=== PATIENT | female | born 1955 | race African-American/Black ===

== ENCOUNTER 2017-10-29 14:11 | Observation (INO) | payer OTHER ==
[2017-10-29 14:24] VITALS: BMI 23.3
--- NOTE | 2017-10-29 15:40 | PDOC ---
Attending Attestation - Resident Resident Name: Eleazar Rodriguez - ED Attending Attestation I have performed the following: I have examined & evaluated the patient, The case was reviewed & discussed with the resident, I agree w/resident's findings & plan, Exceptions are as noted - HPI HPI: 10/29/17 16:57 62 year old female with past medical history of migraines, cervical radiculopathy, chronic lower back presents with approximately 3 days of chest pain. The patient reports a midsternal reproducible chest pain without SOB. Denies shortness of breath on exertion. States that palpation of mid chest worses with pain and with lying down. Initially started with intermittent chest pain and is now constant. Denies trauma or injuries to the area. The patient never had a prior stress test or echo. Pt is concerned as pt has strong family history of [place] including sister who had [place] at 47. - Physicial Exam PE: 10/29/17 17:04 GENERAL: Awake, alert, and fully oriented, in no acute distress HEAD: No signs of trauma EYES: PERRLA, EOMI, sclera anicteric, conjunctiva clear ENT: Auricles normal inspection, hearing grossly normal, nares patent, Moist mucosa NECK: Normal ROM, supple LUNGS: Breath sounds equal, clear to auscultation bilaterally. No wheezes, and no crackles HEART: Regular rate and rhythm, normal S1 and S2, no murmurs, rubs or gallops. + reproducible chest pain ABDOMEN: Soft, nontender, No guarding, no rebound. No masses EXTREMITIES: Normal range of motion, no edema. No clubbing or cyanosis. No cords, erythema, or tenderness NEUROLOGICAL: Cranial nerves II through XII grossly intact. Normal speech, normal gait SKIN: Warm, Dry, normal turgor, no rashes or lesions noted. - Medical Decision Making 10/29/17 17:06 Vital Signs Temp Pulse Resp BP Pulse Ox 99.6 F 96 H 18 122/65 96 10/29/17 14:22 10/29/17 14:22 10/29/17 14:22 10/29/17 14:22 10/29/17 14:22 62 year old female presents with atypical chest pain. Though the patient certainly has risk with family history and [place], the history and physical seems atypical Will need to rule out [place]. ECG is normal. Will trial NSAIDs. (pt as been taking aspirin at home). 10/29/17 18:06 Pt chest pain improved with nitro. Will admit the patient. Heart Score/ECG Review - History History: Slightly suspicious - Electrocardiogram EKG: Normal - Age Age: 45-65 - Risk Factors Risk Factors Heart Score: Yes Positive family hx of cardiac disease Based on the list above the patient has:: 1-2 risk factors - Troponin Troponin: </= normal limit - Score Heart Score - Total: 2 #1 ECG reviewed & interpreted by me at: 14:25 10/29/17 15:39 NSR 82, no sdt/zaire, T wave flat aVF, QTC 390 msec.
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
[2017-10-29] MEDS ORDERED: ASPIRIN 81 MG CHEWABLE TABLETS PO ONE (15:53)
[2017-10-29] MEDS ORDERED: NITROGLYCERIN SUBLINGUAL 1/150 0.4 MG TAB SL ONE (15:53)
[2017-10-29 16:02] LABS: BASO % 0.4 % (0-2.0); EOS % 0.7 % (0-4.5); HEMATOCRIT 40.4 % (32.4-45.2); HEMOGLOBIN 13.5 GM/dL (10.7-15.3); LYMPH % 10.9 % (8-40); MCH 28.4 pg (25.7-33.7); MCHC 33.5 g/dl (32.0-36.0); MEAN CELL VOLUME 84.8 fl (80-96); MEAN PLT VOLUME 8.9 fl (7.5-11.1); MONO % 7.2 % (3.8-10.2); NEUT % 80.8 % (42.8-82.8); PLATELET COUNT 270 K/MM3 (134-434); RBC 4.77 M/mm3 (3.60-5.2); RDW 13.6 % (11.6-15.6); WHITE BLOOD COUNT 13.1 K/mm3 (4.0-10.0)
[2017-10-29] MEDS ORDERED: ASPIRIN 81 MG CHEWABLE TABLETS ONE (16:02)
[2017-10-29] MEDS ORDERED: NITROGLYCERIN SUBLINGUAL 1/150 0.4 MG TAB ONE (16:03)
[2017-10-29 16:25] LABS: ALBUMIN 4.3 g/dl (3.4-5.0); ANION GAP 7 (8-16); BLOOD UREA NITROGEN 5 mg/dL (7-18); CALCIUM 8.8 mg/dL (8.5-10.1); CHLORIDE 105 mmol/L (98-107); CO2 30 mmol/L (21-32); CREATININE 0.9 mg/dL (0.55-1.02); GLUCOSE,RANDOM 76 mg/dL (74-106); POTASSIUM 3.5 mmol/L (3.5-5.1); SGOT/AST 19 U/L (15-37); SGPT/ALT 27 U/L (12-78); SODIUM 142 mmol/L (136-145)
[2017-10-29 16:29] LABS: ALK PHOS 74 U/L (45-117); BILIRUBIN,TOTAL 0.4 mg/dL (0.2-1.0); TOT PROT 7.8 g/dl (6.4-8.2)
[2017-10-29 16:35] LABS: INR 1.02 (0.83-1.09); PROTHROMBIN TIME (PATIENT) 11.5 SEC (9.7-13.0)
[2017-10-29] MEDS ORDERED: KETOROLAC TROMETHAMINE 30 MG/1 ML VIAL ONE (16:58)
[2017-10-29] MEDS ORDERED: KETOROLAC TROMETHAMINE 30 MG/1 ML VIAL IVPUSH ONE (16:58)
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
[2017-10-29] MEDS ORDERED: ACETAMINOPHEN 325 MG TABLET (FP) PO ONE (23:00)
[2017-10-29] MEDS ORDERED: ACETAMINOPHEN 325 MG TABLET (FP) ONE (23:21)
[2017-10-30 07:45] LABS: BASO % 0.2 % (0-2.0); EOS % 0.9 % (0-4.5); HEMATOCRIT 35.7 % (32.4-45.2); HEMOGLOBIN 11.9 GM/dL (10.7-15.3); LYMPH % 17.7 % (8-40); MCH 28.3 pg (25.7-33.7); MCHC 33.3 g/dl (32.0-36.0); MEAN CELL VOLUME 85.1 fl (80-96); MEAN PLT VOLUME 8.7 fl (7.5-11.1); MONO % 9.1 % (3.8-10.2); NEUT % 72.1 % (42.8-82.8); PLATELET COUNT 246 K/MM3 (134-434); RDW 13.7 % (11.6-15.6); WHITE BLOOD COUNT 11.2 K/mm3 (4.0-10.0)
[2017-10-30 08:08] LABS: ALBUMIN 3.5 g/dl (3.4-5.0); ANION GAP 9 (8-16); BILIRUBIN,TOTAL 0.4 mg/dL (0.2-1.0); BLOOD UREA NITROGEN 9 mg/dL (7-18); CHLORIDE 108 mmol/L (98-107); CO2 28 mmol/L (21-32); CREATININE 0.9 mg/dL (0.55-1.02); GLUCOSE,RANDOM 90 mg/dL (74-106); POTASSIUM 3.9 mmol/L (3.5-5.1); SGOT/AST 15 U/L (15-37); SGPT/ALT 20 U/L (12-78); SODIUM 145 mmol/L (136-145); TOT PROT 6.6 g/dl (6.4-8.2)
[2017-10-30 08:11] LABS: ALK PHOS 60 U/L (45-117)
[2017-10-30] MEDS ORDERED: oxyCODONE HCL 10 MG SUSTAINED ACTING TABLET PO SCH (10:00)
[2017-10-30] MEDS ORDERED: PREGABALIN 50 MG CAPSULE PO SCH (10:00)
--- NOTE | 2017-10-30 10:19 | CON.CARD ---
Consult Consult Specialty:: Cardiology Referred by:: Dr. Leigh Reason for Consultation:: Cardiac evaluation - History of Present Illness Chief Complaint: Chest pain History of Present Illness: Patient is a 62 year old female with history of migraines and prior spine surgery (follows Dr. Mey Verdin) and FH of CAD and [place] who presents with chest tightness across her chest and now with throat tightness. She denies SOB or palpitations. She denies fever or chills. She denies nausea, vomiting, diarrhea or abdominal pain. She denies headache or lightheadedness. She says that she was given SL NTG and it relieved her pain briefly. Cardiology consultation was called for further evaluation. 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) - Past Surgical History Additional Surgical History: Spine surgery (fusion) - Alcohol/Substance Use Hx Alcohol Use: Yes - Smoking History Smoking history: Former smoker Have you smoked in the past 12 months: No If you are a former smoker, when did you quit?: 2007 Home Medications - Allergies Allergies/Adverse Reactions: Allergies Allergy/AdvReac Type Severity Reaction Status Date / Time No Known Drug Allergies Allergy Verified 10/29/17 14:22 - Home Medications Home Medications: Ambulatory Orders Ibuprofen [Motrin -] 800 mg PO DAILY 10/29/17 Oxycodone HCl [Oxycontin] 30 mg PO DAILY 10/29/17 Pregabalin [Lyrica] 150 mg PO DAILY 10/29/17 Family Disease History - Family Disease History Other Family History: History of CAD and [place] Review of Systems - Review of Systems Constitutional: denies: Chills, Fever Cardiovascular: reports: Chest Pain. denies: Palpitations, Shortness of Breath Respiratory: denies: Cough, Hemoptysis, Orthopnea, PND, SOB, SOB on Exertion Gastrointestinal: denies: Abdominal Pain, Constipation, Diarrhea, Melena, Nausea , Rectal Bleeding, Vomiting Genitourinary: denies: Dysuria, Hematuria Musculoskeletal: reports: Back Pain Neurological: denies: Dizziness, Headache, Seizure, Syncope Vital Signs: Vital Signs Temperature 97.9 F 10/30/17 07:07 Pulse Rate 97 H 10/30/17 07:07 Respiratory Rate 18 10/30/17 07:07 Blood Pressure 111/68 10/30/17 07:07 O2 Sat by Pulse Oximetry (%) 98 10/30/17 07:07 Eyes: Yes: PERRL HENT: Yes: Atraumatic Neck: Yes: Supple Respiratory: Yes: CTA Bilaterally Gastrointestinal: Yes: Normal Bowel Sounds, Soft. No: Tenderness Cardiovascular: Yes: Regular Rate and Rhythm JVD: No Carotid Bruit: No PMI: Non-Displaced Heart Sounds: Yes: S1, S2. No: Gallop Murmur: No: Systolic Murmur, Diastolic Murmur Edema: No - Other Data Labs, Other Data: CBC, BMP 10/30/17 06:10 10/30/17 06:10 INR, PTT INR 1.02 (0.83-1.09) 10/29/17 15:30 Troponin, BNP 10/29/17 10/29/17 10/30/17 15:30 17:31 00:59 Troponin I < 0.02 < 0.02 < 0.02 Laboratory Results - last 24 hr 10/29/17 10/29/17 10/29/17 15:30 15:30 15:30 WBC 13.1 H RBC 4.77 Hgb 13.5 Hct 40.4 MCV 84.8 MCH 28.4 MCHC 33.5 RDW 13.6 Plt Count 270 MPV 8.9 Absolute Neuts (auto) 10.6 Neutrophils % 80.8 Lymphocytes % 10.9 Monocytes % 7.2 Eosinophils % 0.7 Basophils % 0.4 Nucleated RBC % 0 PT with INR 11.50 INR 1.02 Sodium 142 Potassium 3.5 Chloride 105 Carbon Dioxide 30 Anion Gap 7 L BUN 5 L Creatinine 0.9 Creat Clearance w eGFR > 60 Random Glucose 76 Calcium 8.8 Total Bilirubin 0.4 AST 19 ALT 27 Alkaline Phosphatase 74 Creatine Kinase 155 Creatine Kinase Index 0.9 CK-MB (CK-2) 1.43 Troponin I < 0.02 Total Protein 7.8 Albumin 4.3 Salicylates Blood Type Antibody Screen 10/29/17 10/29/17 10/29/17 15:30 15:59 17:31 WBC RBC Hgb Hct MCV MCH MCHC RDW Plt Count MPV Absolute Neuts (auto) Neutrophils % Lymphocytes % Monocytes % Eosinophils % Basophils % Nucleated RBC % PT with INR INR Sodium Potassium Chloride Carbon Dioxide Anion Gap BUN Creatinine Creat Clearance w eGFR Random Glucose Calcium Total Bilirubin AST ALT Alkaline Phosphatase Creatine Kinase 134 Creatine Kinase Index CK-MB (CK-2) Troponin I < 0.02 Total Protein Albumin Salicylates 9.44 Blood Type O POSITIVE Antibody Screen Negative 10/30/17 10/30/17 10/30/17 00:59 06:10 06:10 WBC 11.2 H RBC 4.20 Hgb 11.9 Hct 35.7 MCV 85.1 MCH 28.3 MCHC 33.3 RDW 13.7 Plt Count 246 MPV 8.7 Absolute Neuts (auto) 8.1 Neutrophils % 72.1 Lymphocytes % 17.7 D Monocytes % 9.1 Eosinophils % 0.9 Basophils % 0.2 Nucleated RBC % 0 PT with INR INR Sodium 145 Potassium 3.9 Chloride 108 H Carbon Dioxide 28 Anion Gap 9 BUN 9 Creatinine 0.9 Creat Clearance w eGFR > 60 Random Glucose 90 Calcium 8.0 L Total Bilirubin 0.4 AST 15 ALT 20 Alkaline Phosphatase 60 D Creatine Kinase 116 Cancelled Creatine Kinase Index CK-MB (CK-2) Troponin I < 0.02 Cancelled Total Protein 6.6 Albumin 3.5 Salicylates Blood Type Antibody Screen NSR with nonspecific T abnormality Echo: Pending Imaging - Results Chest X-ray: Report Reviewed (Unremarkable) EKG: Report Reviewed Problem List - Problems (1) Migraine Code(s): G43.909 - MIGRAINE, UNSP, NOT INTRACTABLE, WITHOUT STATUS MIGRAINOSUS (2) Abnormal ECG Code(s): R94.31 - ABNORMAL ELECTROCARDIOGRAM [ECG] [EKG] (3) Chest pain Code(s): R07.9 - CHEST PAIN, UNSPECIFIED Qualifiers: Chest pain type: unspecified Qualified Code(s): R07.9 - Chest pain, unspecified (4) Lumbar radiculopathy Code(s): M54.16 - RADICULOPATHY, LUMBAR REGION Assessment/Plan 1. Chest pain syndrome rule out CAD relieved with SL NTG 2. FH of CAD and [place] 3. Back pain post spinal fusion surgery 4. History of Migraines PLAN: 1. Serial troponin negative 2. ASA 3. Analgesics 4. Transthoracic echocardiography to assess LV/RV and valvular function 5. Nuclear MPI (Lexiscan) today and if negative, may discharge home Further plans are to follow Víctor Michelle MD
[2017-10-30] MEDS ORDERED: PREGABALIN 50 MG CAPSULE ONE (10:33)
[2017-10-30] MEDS ORDERED: PREGABALIN 100 MG CAPSULE ONE (10:33)
[2017-10-30] MEDS ORDERED: oxyCODONE HCL 5 MG TABLET ONE (10:38)
[2017-10-30] MEDS ORDERED: NITROGLYCERIN SUBLINGUAL 1/150 0.4 MG TAB ONE (11:10)
[2017-10-30] MEDS ORDERED: REGADENOSON 0.4 MG/5 ML PRE-FILLED SYRINGE IVPUSH ONE ×2 (12:15→12:49)
[2017-10-30] MEDS ORDERED: MAG HYDROX/AL HYDROX/SIMETH 30 ML UNIT-DOSE CUP ONE (15:25)
[2017-10-30 15:30] VITALS: BP 112/83; PULSE 102; TEMP 99.2
--- NOTE | 2017-10-30 16:22 | ECHO ---
Name: LAINE QUINTANILLA Exam:Adult Echocardiogram Study Date: 10/30/2017 07:51 AM Age: 62 yrs Reason For Study: Chest pain Height: 63 in Weight: 132 lb BSA: 1.6 m2 MMode/2D Measurements & Calculations IVSd: 1.2 cm Ao root diam: 3.3 cm LVIDd: 3.7 cm LA dimension: 1.8 cm LVIDs: 2.7 cm LVPWd: 1.2 cm EDV(Teich): 57.1 ml LAV (MOD-bp): 45.0 ml ESV(Teich): 27.6 ml Doppler Measurements & Calculations MV E max louie: 60.1 cm/sec TR max louie: 172.7 cm/sec MV A max louie: 58.2 cm/sec TR max P.0 mmHg MV E/A: 1.0 MV dec time: 0.29 sec Med Peak E' Louie: 6.0 cm/sec PI Vmax: 96.4 cm/sec Med E/e': 10.0 Lat Peak E' Louie: 5.3 cm/sec Lat E/e': 11.3 Procedure A complete two-dimensional transthoracic echocardiogram was performed (2D, M-mode, Doppler and color flow Doppler). Left Ventricle The left ventricle is normal in size. There is borderline concentric left ventricular hypertrophy. Ej ection Fraction = 60%. E/A reversal consistent with but not diagnostic of poor LV compliance. The left ventr icular wall motion is normal. Right Ventricle The right ventricle is normal in size and function. Atria Normal left and right atrial size and function. Mitral Valve The mitral valve is grossly normal. There is trace mitral regurgitation. Tricuspid Valve The tricuspid valve is not well visualized, but is grossly normal. There is trace tricuspid regurgita tion. There was insufficient TR detected to calculate RV systolic pressure. Aortic Valve The aortic valve is trileaflet. Mild aortic regurgitation. Pulmonic Valve The pulmonic valve is not well seen, but is grossly normal. Great Vessels The aortic root is normal size. Normal aortic arch, descending and ascending aorta. Pericardium/Pleura There is no pericardial effusion. There is no pleural effusion. Interpretation Summary The left ventricle is normal in size. There is borderline concentric left ventricular hypertrophy. Ejection Fraction = 60%. E/A reversal consistent with but not diagnostic of poor LV compliance The left ventricular wall motion is normal. The right ventricle is normal in size and function. Normal left and right atrial size and function. There is trace mitral regurgitation. There is trace tricuspid regurgitation. There was insufficient TR detected to calculate RV systolic pressure. MD Rj Michele 10/30/2017 04:22 PM
--- NOTE | 2017-10-30 16:27 | EKG ---
Test Reason : Blood Pressure : / mmHG Vent. Rate : 082 BPM Atrial Rate : 082 BPM P-R Int : 154 ms QRS Dur : 086 ms QT Int : 334 ms P-R-T Axes : 030 -10 017 degrees QTc Int : 390 ms NORMAL SINUS RHYTHM NORMAL ECG NO PREVIOUS ECGS AVAILABLE Confirmed by Rj Michele MD ([id number]) on 10/30/2017 4:27:08 PM Referred By: Confirmed By:Rj Michele MD
--- NOTE | 2017-10-30 19:51 | DS ---
Physical Examination Vital Signs: Vital Signs Temperature 99.2 F 10/30/17 15:29 Pulse Rate 102 H 10/30/17 15:29 Respiratory Rate 18 10/30/17 15:29 Blood Pressure 112/83 10/30/17 15:29 O2 Sat by Pulse Oximetry (%) 98 10/30/17 15:29 Labs: CBC, BMP 10/30/17 06:10 10/30/17 06:10 Discharge Summary Reason For Visit: CHEST PAIN - Instructions Referrals: Pastora Alston MD [Primary Care Provider] - Disposition: ELOPED - Home Medications Comprehensive Discharge Medication List: Ambulatory Orders Ibuprofen [Motrin -] 800 mg PO DAILY 10/29/17 Oxycodone HCl [Oxycontin] 30 mg PO DAILY 10/29/17 Pregabalin [Lyrica] 150 mg PO DAILY 10/29/17 ELOPED
== END 2017-10-30 17:45 | disposition left against medical advice (07) ==
LOC: JER 14:11 → JERBED 18:32
PROVIDERS: ADMIT Internal Medicine; ATTEND Internal Medicine
PROC: 3E0333Z Introduction of Anti-inflammatory into Peripheral Vein, Percutaneous Approach (ICD-10-PCS; principal; 2017-10-29)
PROC: 3E033GC Introduction of Other Therapeutic Substance into Peripheral Vein, Percutaneous Approach (ICD-10-PCS; 2017-10-29)
DX: R07.9 Chest pain, unspecified (principal); R94.31 Abnormal electrocardiogram [ECG] [EKG]; G43.909 Migraine, unspecified, not intractable, without status migrainosus; M54.16 Radiculopathy, lumbar region; Z98.1 Arthrodesis status; Z87.891 Personal history of nicotine dependence
CPT/HCPCS: 36415; 71046-TC-FY; 78452-TC; 80053; 80307; 82550; 82553; 84484; 85025; 85610; 86850; 86900; 86901; 93005; 93010; 93017; 93306-TC; 96374; 96375; 99285-25; A9502; G0378; J2785